=== PATIENT | male | born 1965 | race African-American/Black ===

== ENCOUNTER → 2023-12-08 08:15 | Outpatient (REF) | payer BC, SELFPAY | LOC: DHCBC MAIN 08:15 | PROVIDERS: ATTENDING PHYSICIAN Internal Medicine Cardiovascular Disease; FAMILY PHYSICIAN Nurse Practitioner Adult Health | DX: I10 Essential (primary) hypertension (principal) | CPT/HCPCS: 93306 ==

== ENCOUNTER 2024-09-08 03:40 | Inpatient (IN) | payer BC, SELFPAY ==
[2024-09-07 23:04] VITALS: BP 156/110
[2024-09-07 23:50] VITALS: BP 143/105
[2024-09-07 23:51] VITALS: BMI 32.0
[2024-09-08] VITALS (17 sets, daily range): BP systolic 106–159; BP diastolic 74–127; BMI 31.1
[2024-09-08 00:43] LABS: % Basophils 0.2 % (0-2); % Immature Granulocytes 1.2 % (0-0.5); % Lymphocytes 11.6 % (20.5-51.1); Absolute Immature Granulocytes 0.1 10^3/uL (0-0.05); Absolute Lymphocytes 0.6 10^3/uL (1.2-3.4); Absolute Monocytes 0.3 10^3/uL (0.1-0.6); Absolute Neutrophils 4.1 10^3/uL (1.4-6.5); Hematocrit 42.6 % (39.0-52.0); Mean Corp Hgb Conc. 32.9 g/dL (33.0-37.0); Mean Corpuscular Hgb 27.4 pg (27.0-31.0); Mean Corpuscular Volume 83.4 fL (80.0-94.0); Mean Platelet Volume 10.4 fL (7.4-10.4); Nucleated Red Blood Cells % 0 % (-); Platelet Count 206 10^3/uL (130-400); Red Blood Cell Count 5.11 10^6/uL (4.70-6.10); Red Cell Dist. Width 15.6 % (11.5-14.5)
--- NOTE | 2024-09-08 00:45 | ED.GENMED ---
History of Present Illness
General
Chief Complaint: Breathing Problem
Source: patient
Time Seen by Provider: 09/08/24 00:16
History of Present Illness
History of Present Illness:
58yoM with a history of hypertension presenting for evaluation of shortness of breath. He reports having a heaviness in his legs with associated shortness of breath that began about 3 weeks ago. Dyspnea is worse with exertion and at nighttime. He
was seen by his PCP at symptom onset and he was prescribed amoxicillin. Patient was told that his heart rate sounded irregular during exam and he was referred to cardiology. He has not yet seen cardiology. Symptoms initially subsided after taking
the antibiotics but then recurred. He was again seen at his PCP office today and was prescribed prednisone. He was speaking with a family friend who told him to go to the ED to make sure he did not have any fluid around his heart. He denies any
chest pain, palpitations, syncope, leg swelling. No prior history of atrial fibrillation.
Past History
Past History
ED Past Medical History: HTN
ED Past Surgical History: Orthopedic
Social History
Tobacco: Non-smoker
Alcohol: None
Drug: None
Personal:
Living: with family
Employment: Employed
Family History
Family History: Hypertension
Phy Exam
General Physical Exam
General Presentation: well appearing and no apparent distress
General age: appears stated age
General Skin: warm and dry
General Habitus: normal
General Mental: alert
ENT Exam
ENT Exam: normocephalic
Cardiovascular Exam
Cardiovascular Exam: no edema, irregularly irregular and tachycardia
Pulmonary Exam
Pulmonary Exam: lungs clear, no respiratory distress, no rales, no crackles, no rhonchi and no wheezing
Neurological Exam
Neurological Exam: alert
[place] Coma Scale
Eye Opening: Spontaneous
Verbal Response: Oriented
Motor Response: Obeys Commands
GCS Total Score: 15
Skin Exam
Skin Exam: normal color and warm/dry
Psychiatric Exam
Psychiatric Exam: normal mood/affect
Scores
Heart Failure Risk
Heart Failure Risk Score: Not Applicable
Course
Orders/Labs/Results
Orders:
Orders
09/07/24 23:07
Electrocardiogram (*1) Urgent
Reason for Study: Shortness of Breath
Chest [CR Chest - 2 Views ] Urgent
Comment:
Reason For Exam: SOB
09/08/24 00:15
CMP [Comprehensive Metabolic Panel] Urgent
Complete Blood Count/With Diff Urgent
Magnesium Urgent
TSH Urgent
Comment: ADD ON
Troponin I Urgent
09/08/24 00:44
Add On- LAB Urgent
Tests Added?: TSH, magnesium
09/08/24 00:47
Diltiazem HCl [Cardizem] 15 mg IV NOW STA
09/08/24 02:15
Diltiazem 125 mg/125 ml Nss [Cardizem] 125 mg in 125 ml IV PER PROTOCOL
Initial dose in mg/hr, then titrate:: 5
Titrate to keep:: Heart rate 80-100 bpm
Titrate by mg/hr:: 5 mg/hr
Frequency of titrations (minutes):: 15
Maximum dose in mg/hr:: 15
09/08/24 02:59
NT-proBNP Urgent
09/08/24 03:18
Admit/Transfer Patient As Directed
Co-Sign Provider:
Level of Care: Inpatient admission
Assign to:: IVU
Physician / Group: hospitalist
Diagnosis: afib rvr
Reason for Hospitalization: rvr
Expected length of stay greater than two midnights?: Yes
ELOS- Estimated Length of Stay in days: 2
I certify the patient meets the requirements for IP care: Yes
09/08/24 03:19
Code Status As Directed
Resuscitation Status: Full Code
09/08/24 04:56
Acetaminophen [Tylenol] 650 mg PO Q4HPRN PRN
Diltiazem 125 mg/125 ml Nss [Cardizem] 125 mg in 125 ml IV PER PROTOCOL
Currently infusing. Continue current dose and titrate:: Yes
Titrate to keep:: Heart rate 80-100 bpm
Titrate by mg/hr:: 5 mg/hr
Frequency of titrations (minutes):: 15
Maximum dose in mg/hr:: 15
Mag Hydrox/Al Hydrox/Simeth [Maalox] 30 ml PO Q4HPRN PRN
Ondansetron Injectable [Zofran] 4 mg IV Q6HPRN PRN
09/08/24 04:56
Echo 2D MMode Color/Doppler Routine
Reason for Study: new onset afib, rvr
Activity As Directed
Activity Level: With Assistance
INT (Intravenous Needle Therapy) As Directed
Comment: maintain peripheral IV access
Intake/ Output As Directed
Frequency: Per unit guidelines
Pneumatic Compression Sleeves As Directed
Type: Knee high
Vital Signs As Directed
Frequency: q4h
Weight As Directed
Frequency: Daily
DX Deep Vein Thrombosis Video Routine
09/08/24 05:32
Basic Metabolic Panel IN AM
Complete Blood Count/No Diff IN AM
09/08/24 Breakfast
NPO
Allow oral meds: Yes
Allow clear liquids: Sips of Clears
09/08/24 08:00
Lisinopril [Zestril] 20 mg PO DAILY
Predisone 4 mg PO DAILY
Abnormal Lab Results
09/08/24
00:15
MCHC 32.9 L g/dL
(33.0-37.0)
RDW 15.6 H %
(11.5-14.5)
Abs Immat Gran (auto) 0.1 H 10^3/uL
(0-0.05)
Absolute Lymphs (auto) 0.6 L 10^3/uL
(1.2-3.4)
Immature Gran % 1.2 H %
(0-0.5)
Neutrophils % 81.0 H %
(42.2-75.2)
Lymphocytes % 11.6 L %
(20.5-51.1)
BUN 23 H mg/dl
(9-20)
Glucose 117 H mg/dl
(70-99)
AST 75 H U/L
(17-59)
ALT 82 H U/L
(0-50)
09/08/24 00:15
09/08/24 00:15
Vital Signs
Initial and Last Documented VS:
Initial Vital Signs
Temp Pulse Resp BP Pulse Ox
98.1 F 66 20 156/110 98
09/07/24 23:04 09/07/24 23:04 09/07/24 23:04 09/07/24 23:04 09/07/24 23:04
Last Documented Vital Signs
Temp Pulse Resp BP Pulse Ox
98.7 F 105 18 144/100 99
09/08/24 07:42 09/08/24 07:41 09/08/24 07:42 09/08/24 07:41 09/08/24 07:42
MDM/Problems Addressed
Differential Diagnosis Includes:
58yoM here with SOB. Intermittent symptoms x 3 weeks. Was told by his PCP at symptom onset that his heart beat was irregular and was referred to cardiology. Has been treated with amoxicillin and prescribed prednisone earlier today. Denies
CP/palpitations/syncope. HR 120-130 during initial exam. Rate is irregularly irregular. EKG in triage confirms afib with RVR. Differential diagnosis includes but is not limited to: arrhythmia, CHF, electrolyte abnormality, thyroid dysfunction
Initial ED plan: Check cardiac labs, TSH, and CXR. IV Cardizem for rate control.
*EKG
Interpreted by ED Provider?: Yes
EKG Intrepretation Date: 09/07/24
Heart Rate: 130
Rate: tachycardiac
Rhythm: a-fib and PVC's
[place]: normal axis
QRS Pattern: normal QRS
Ischemia: no ischemia
*Critical Care Note
Total Time (30-74mins, 75-104mins- exclusive of procedures): Not Applicable
Update Note
Update Note:
Troponin WNL. Electrolytes and TSH normal. Patient persistently tachycardic after Cardizem bolus. Infusion started. Patient not a candidate for ED cardioversion given duration of symptoms and he is not anticoagulated. Will admit for further
management.
ED Attending Note
-
Portions of this chart may have been created with voice recognition software.� Occasional wrong word or��sound alike� substitutions may have occurred due to the inherent limitations of voice recognition software.
Discharge Plan
Departure
Patient Disposition: Admit
Date of Disposition: 09/08/24
Time of Disposition: 02:32
Presentation/result/management discussed w/ accepting MD/DO: Hospitalist
Discharge Problem:
Atrial fibrillation with rapid ventricular response
Interventions
Interventions:
*Risk Screen - Suicide Last Done: 09/07/24 23:04
*General Assessment Last Done: 09/08/24 00:11
*Neglect/Abuse Screening Last Done: 09/07/24 23:04
ED- Fall Risk Assessment Last Done: 09/08/24 04:00
*ED COVID-19 Vaccine History Last Done: 09/08/24 00:05
*Nursing Disposition Last Done: 09/08/24 04:30
ED- Cardiac Assessment Last Done: 09/07/24 23:51
ED- Pulmonary Assessment Last Done: 09/07/24 23:53
Discharge Date and Time
Discharge Date/Time: 09/08/24 04:30
[2024-09-08 00:50] LABS: ALT (SGPT) 82 U/L (0-50); AST (SGOT) 75 U/L (17-59); Albumin 3.9 g/dl (3.5-5.0); Alkaline Phosphatase 66 U/L (38-126); Blood Urea Nitrogen 23 mg/dl (9-20); Calcium 9.2 mg/dl (8.4-10.2); Carbon Dioxide 24 mmol/L (22-30); Chloride 103 mmol/L (98-107); Estimated Creatinine Clearance 108 ml/min; Glucose 117 mg/dl (70-99); Potassium 4.4 mmol/L (3.5-5.1); Sodium 135 mmol/L (135-145); Total Bilirubin 0.6 mg/dl (0.2-1.3); Total Protein 6.9 g/dl (6.3-8.2); eGFR > 60.00
[2024-09-08 00:56] LABS: Troponin I < 0.012 ng/ml
[2024-09-08] MEDS: CARDIZEM 15 MG IV (00:58)
[2024-09-08 02:50] LABS: TSH 1.04 uIU/ml (0.47-4.68)
[2024-09-08] MEDS: CARDIZEM 125 IV (03:26)
[2024-09-08 03:28] LABS: NT-proBNP 1940 pg/ml
--- NOTE | 2024-09-08 03:31 | HPS.HSE ---
Family Physician
-
Family Physician: Marian Lucio
Chief Complaint
-
Irregular rhythm and shortness of breath
History of Present Illness
This is a 58-year-old male with past medical history significant for hypertension who comes into the emergency department after being told to get evaluated for his irregular heartbeat and congestive heart failure.
Patient stated that about 3 weeks ago he was told that he had irregular beats by his physician and was referred to cardiology. In that time the patient reports that his had intermittent episodes of shortness of breath where he could not catch his
breath. He denies any coughing or wheezing. He does not smoke and has no history of asthma. Patient denies any lower extremity swelling. Denies any calf tenderness or pain. He does report that his legs feels elevated heavy. He denies having
any palpitations lightheadedness or dizziness. He is unaware of any irregular or rapid heart rate. However friends and family were in the healthcare told him to get evaluated in the ED with a chest x-ray for his shortness of breath. He actually
started taking azithromycin and prednisone yesterday for presumed bronchitis although he has no cough fevers or chills.
In the ED today he was afebrile blood pressure was 125/100 with a pulse rate of 130, he was satting 99% on room air. CBC was unremarkable electrolytes BUN/creatinine were also within normal limits. ECG shows atrial fibrillation with rapid
ventricular response at a rate of 130, troponin was negative. Chest x-ray has a small retrocardiac opacity. TSH within normal limits. BMP pending.
Medical History
Past Medical History
Past Medical History: Reports HTN
Past Surgical History: Reports None
Social History
Tobacco: Non-smoker
Alcohol: None
Drug: None
Personal:
Living: With Family
Employment: Employed
Family History
Family History: Not pertinent
Allergies / Home Medications
Allergies reflects when Allergies were last updated in [facility].
Home Medications with original date entered in [facility]
Allergy/Medication List:
Allergies
Allergy/AdvReac Type Severity Reaction Status Date / Time
No Known Allergies Allergy Verified 09/07/24 23:07
Home Medications
Predisone 4 mg PO DAILY 09/07/24
amlodipine 10 mg PO DAILY 09/07/24
azithromycin 250 mg PO DAILY 09/07/24
lisinopril 20 mg PO DAILY 09/07/24
Review of Systems
-
Constitutional: Reports No Symptoms
EENT: Reports No Symptoms
Respiratory: Reports Trouble Breathing
Cardiac: Reports No Symptoms
Abdomen/GI: Reports No Symptoms
: Reports No Symptoms
Musculoskeletal: Reports No Symptoms
Skin: Reports No Symptoms
Neurological: Reports No Symptoms
Endocrine: Reports No Symptoms
Hematologic/Lymphatic: Reports No Symptoms
Psych: Reports No Symptoms
Physical Exam
Vital Signs
Vital Signs
Temp Pulse Resp BP Pulse Ox
98.1 F 137 20 125/113 99
09/07/24 23:04 09/08/24 00:58 09/07/24 23:04 09/08/24 00:58 09/07/24 23:53
Physical Exam
General: Well Developed, Well Nourished, No Apparent Distress and Comfortable
HEENT: NormoCephalic, Anicteric, Moist mucous membranes and Atraumatic
Respiratory: Clear
Cardiac: S1/S2, Irregular Rhythm and Tachycardia
Breast: Deferred by me
GI: Soft, Non Tender and Normal Bowel Sounds
Rectal: Deferred by Provider
Genito-urinary: Deferred by me
Musculoskeletal: No Clubbing, No Cyanosis and No Edema
Skin: Warm
Neuro: AO x 3
Hematologic/Lymphatic: No Lymphadenopathy
Psych: Calm
Laboratory Results
-
09/08/24 00:15
09/08/24 00:15
Laboratory Results
Total Bilirubin 0.6 mg/dl (0.2-1.3) 09/08/24 00:15
AST 75 U/L (17-59) H 09/08/24 00:15
ALT 82 U/L (0-50) H 09/08/24 00:15
Alkaline Phosphatase 66 U/L (38-126) 09/08/24 00:15
Troponin I < 0.012 ng/ml 09/08/24 00:15
Data Reviewed
-
Diagnostic Radiology: Image Personally Visualized and interpreted
Medical Tests (Nuc Med, Echo, EKG etc): Image Personally Visualized and interpreted
Lab Data: Labs Reviewed by me
Old Records: Reviewed
Impression/Plan
-
IMPRESSION:
Patient with new onset atrial fibrillation with rapid ventricular response.
PLAN:
1. AFIB RVR -
- admit to ivu
- started on diltiazem in ED
- no cardioversion given duration
- CHADS2 = 1, possible aspirin or AC pending cardiac evaluation
- echo, bnp in am
- npo for now pending cardiac evalaution, likely rate control achievable on meds and no need for urgent cardioversion
- cardiology consultation
2. Bronchitis - No cough, fevers, leukocytosis. Xray possible infiltrate
- hold abx and steroids for now
- monitor respiratory symptoms
DVT PPX - heparin sq pending cardiology eval
Code status - full code
[2024-09-08 04:22] LABS: PT 14.5 Sec (11.4-14.6)
[2024-09-08 04:23] LABS: APTT 33.2 Sec (23.4-35.0)
[2024-09-08 06:06] LABS: Hematocrit 40.9 % (39.0-52.0); Hemoglobin 14.1 g/dL (13.0-18.0); Mean Corp Hgb Conc. 34.5 g/dL (33.0-37.0); Mean Corpuscular Hgb 27.8 pg (27.0-31.0); Mean Corpuscular Volume 80.5 fL (80.0-94.0); Platelet Count 209 10^3/uL (130-400); Red Blood Cell Count 5.08 10^6/uL (4.70-6.10); Red Cell Dist. Width 15.1 % (11.5-14.5); White Blood Cell Count 5.4 10^3/uL (4.8-10.8)
[2024-09-08 06:28] LABS: Blood Urea Nitrogen 20 mg/dl (9-20); Calcium 9.2 mg/dl (8.4-10.2); Carbon Dioxide 23 mmol/L (22-30); Chloride 103 mmol/L (98-107); Estimated Creatinine Clearance 118 ml/min; Glucose 105 mg/dl (70-99); Potassium 4.6 mmol/L (3.5-5.1); Sodium 136 mmol/L (135-145); eGFR > 60.00
[2024-09-08] MEDS: ZESTRIL 20 MG PO (07:41)
--- NOTE | 2024-09-08 07:41 | PTCARENOTE ---
Pt admitted to room 2243. AFib on monitor. Cardizem gtt ay 5ml/hr. Pt denies CP or SOB at that time. Pt ambbulates independently. Pt Oriented to room. call campuzano in reach. NPO per order
[2024-09-08] MEDS: HEPARIN 5000 UNITS SC (07:47)
--- NOTE | 2024-09-08 09:19 | CON.CAR ---
Consultation
Consultation Request
Date/Time Consultation Requested: 09/08/2024
Date/Time Consultation Performed: 09/08/2024
Reason for Consultation: New onset atrial fibrillation
Medical History
-
Chief Complaint: Palpitations and shortness of breath
History of Present Illness:
58-year-old male with past medical history significant for hypertension who comes into the emergency department after being told to get evaluated for his irregular heartbeat and congestive heart failure.
Patient stated that about 3 weeks ago he was told that he had irregular beats by his physician and was referred to cardiology. In that time the patient reports that his had intermittent episodes of shortness of breath where he could not catch his
breath. He denies any coughing or wheezing. He does not smoke and has no history of asthma. Patient denies any lower extremity swelling. Denies any calf tenderness or pain. He does report that his legs feels elevated heavy. He denies having
any palpitations lightheadedness or dizziness. He is unaware of any irregular or rapid heart rate. However friends and family were in the healthcare told him to get evaluated in the ED with a chest x-ray for his shortness of breath. He actually
started taking azithromycin and prednisone yesterday for presumed bronchitis although he has no cough fevers or chills.
In the ED today he was afebrile blood pressure was 125/100 with a pulse rate of 130, he was satting 99% on room air. CBC was unremarkable electrolytes BUN/creatinine were also within normal limits. ECG shows atrial fibrillation with rapid
ventricular response at a rate of 130, troponin was negative. Chest x-ray has a small retrocardiac opacity. TSH within normal limits. BMP pending.
Past Medical History
Past Medical History: Arrhythmias (Sustained atrial fibrillation diagnosed over a month ago.) and HTN
Social History
Tobacco: Non-Smoker
Alcohol: None
Drug: None
Personal:
Living: With Family
Family History
Family History: Reviewed & Not Pertinent
Allergies / Home Medications
Allergy/AdvReac Type Severity Reaction Status Date / Time
No Known Allergies Allergy Verified 09/07/24 23:07
�Medication �Instructions �Recorded �Confirmed �Type
Predisone 4 mg PO DAILY 09/07/24 09/08/24 History
amlodipine 10 mg PO DAILY 09/07/24 09/08/24 History
azithromycin 250 mg PO DAILY 09/07/24 09/08/24 History
lisinopril 20 mg PO DAILY 09/07/24 09/07/24 History
Review of Systems
-
All other systems: Negative unless noted
Physical Exam
Vital Signs
Temp Pulse Resp BP Pulse Ox
98.7 F 105 18 144/100 99
09/08/24 07:42 09/08/24 07:41 09/08/24 07:42 09/08/24 07:41 09/08/24 07:42
Lab Results
09/08/24 05:32
09/08/24 05:32
Troponin I < 0.012 ng/ml 09/08/24 00:15
Ekn-O-Cgfprwkfiwt Pept 1940 pg/ml 09/08/24 02:59
Physical Exam
General: Well Developed, Well Nourished and No Apparent Distress
HEENT: Normocephalic and Anicteric
Respiratory: Clear, Wheezes and Non Labored Respirations
Cardiac: S1/S2, Irregular Rhythm and Murmur; Negative JVD
GI: Soft, Non Distended and Normal Bowel Sounds
Musculoskeletal: No Clubbing, No Cyanosis and No Edema
Skin: Warm and Dry
Neuro: Awake, Alert, Oriented, AO x 3 and No Motor Deficits
Impression / Plan
-
58-year-old gentleman with history of essential hypertension presented with shortness of breath and palpitations and is noted to have atrial fibrillation with rapid ventricular response.
Atrial fibrillation
-Persistent atrial fibrillation initially diagnosed at the start of August 2024
-The onset of atrial fibrillation is not clear. Possible present over a month.
-[id number] score is 1 for hypertension
-Patient was previously not anticoagulated due to low [id number] score
-Now with the plan for rhythm control, we will start patient on Eliquis 5 mg twice a day
-Discussed including and versus rhythm control -patient is interested in rhythm control with an ablation.
-We will schedule for ablation consult as an outpatient.
-For now we will continue rate control�switch IV diltiazem drip to p.o.
-Requiring high dose of diltiazem. Will start 360 mg of diltiazem once a day
-We will add metoprolol 25 mg every 6 hours for additional rate control
-Continue lisinopril
-Echo in AM.
Hypertension
-Continue lisinopril
-Will discontinue amlodipine and switch to diltiazem and metoprolol.
Data Reviewed
-
EKG: Tracing Personally Visualized and interpreted and Report Reviewed by me
Radiology: Image Personally Visualized and interpreted
Medical Tests (Nuc Med, Echo etc): Image Personally Visualized and interpreted
Labs: Labs Reviewed by me
Old Records: Reviewed
--- NOTE | 2024-09-08 11:23 | W.PN.UPDATE ---
Update Note
Progress Note Update
Non-billable addendum (H&P submitted 330 AM)
Patient admitted with new onset Rapid Afib
started on IV Cardizem with plans to transition to PO agents per EP Cardiology
Currently comfortable, no complaints
Assessment:
Parox Afib with RVR
- continue Cardizem drip - requires intensive monitoring of BP/HRs
- planned for transition to PO Cardizem and PO Lopressor
- start Eliquis
- obtain Echo
- EP/Cards following; possible Ablation outpatient
Suspected mild acute CHF - unknown type
- IV Lasix x 1
- reassess in AM
reported R basilar infiltrate on CXR
- no SOB or cough, no hypoxia
- check AM procal
- watch off Abx
DVT ppx: Eliquis
Code: Full
[2024-09-08] MEDS: LOPRESSOR 25 MG PO ×3 (12:16→22:49)
[2024-09-08] MEDS: LASIX 40 MG IV (12:16)
[2024-09-08] MEDS: CARDIZEM CD 360 MG PO (12:16)
[2024-09-08] MEDS: ELIQUIS 5 MG PO ×2 (12:16→20:27)
--- NOTE | 2024-09-08 14:40 | PTCARENOTE ---
Pt remains Afib. HR 90-100s. Assessment completed as documented. VSS. No complaints at this time. Call justen w/in reach.
[2024-09-09] VITALS (9 sets, daily range): BP systolic 109–145; BP diastolic 81–117; BMI 30.4
[2024-09-09] MEDS: ANESTHETIC LOZENGE 1 LOZENGE PO (01:53)
[2024-09-09 04:12] LABS: Hematocrit 41.8 % (39.0-52.0); Hemoglobin 14.2 g/dL (13.0-18.0); Mean Corpuscular Hgb 27.5 pg (27.0-31.0); Mean Platelet Volume 10.2 fL (7.4-10.4); Platelet Count 198 10^3/uL (130-400); Red Blood Cell Count 5.16 10^6/uL (4.70-6.10); Red Cell Dist. Width 15.1 % (11.5-14.5); White Blood Cell Count 7.4 10^3/uL (4.8-10.8)
[2024-09-09 04:34] LABS: ALT (SGPT) 91 U/L (0-50); AST (SGOT) 67 U/L (17-59); Alkaline Phosphatase 52 U/L (38-126); Blood Urea Nitrogen 16 mg/dl (9-20); Calcium 9.1 mg/dl (8.4-10.2); Carbon Dioxide 27 mmol/L (22-30); Chloride 101 mmol/L (98-107); Estimated Creatinine Clearance 96 ml/min; Glucose 105 mg/dl (70-99); Potassium 3.9 mmol/L (3.5-5.1); Sodium 137 mmol/L (135-145); Total Bilirubin 0.8 mg/dl (0.2-1.3); Total Protein 7.1 g/dl (6.3-8.2); eGFR > 60.00
[2024-09-09 04:43] LABS: Procalcitonin < 0.05 ng/ml (0.0-0.25)
[2024-09-09] MEDS: LOPRESSOR 25 MG PO (05:05)
--- NOTE | 2024-09-09 07:58 | W.PN.CD ---
Today's Communication / Plan
-
- ECHO today
- Lasix x1 today and can use lasix 40 mg PO prn edema.
- Dig x1 today
- Discharge home on Dilt and Metoprolol with Eliquis. Stop Amlodipine.
- Likely discharge with follow up in office in 1-2 weeks for ablation consult.
Impression / Plan
-
58-year-old gentleman with history of essential hypertension presented with shortness of breath and palpitations and is noted to have atrial fibrillation with rapid ventricular response.
Atrial fibrillation
-Persistent atrial fibrillation initially diagnosed at the start of August 2024
-The onset of atrial fibrillation is not clear. Possible present over a month.
-[id number] score is 1 for hypertension
-Patient was previously not anticoagulated due to low [id number] score
-Now with the plan for rhythm control, we will start patient on Eliquis 5 mg twice a day
-Discussed including and versus rhythm control -patient is interested in rhythm control with an ablation.
-We will schedule for ablation consult as an outpatient.
-For now we will continue rate control�switch IV diltiazem drip to p.o.
-Rate control is sub optimal - will continue Dill 360 mg QD, Switch Metoprolol to 100 mg QAM.
-Will give digoxin Po x1 today while dilt and Metoprolol reaches stable levels.
-Continue lisinopril
-Echo today with better rate control
Hypertension
-Continue lisinopril
-Will discontinue amlodipine and switch to diltiazem and metoprolol.
Physical Exam
Vital Signs/Labs
Vital Signs
Temp Pulse Resp BP Pulse Ox
98.0 F 114 16 131/102 99
09/09/24 03:52 09/09/24 05:05 09/09/24 03:52 09/09/24 05:05 09/09/24 03:53
09/08/24 09/09/24 09/10/24
06:59 06:59 06:59
Actual Weight 109.9 kg 107.5 kg
09/09/24 04:00
09/09/24 04:00
PT 14.5 Sec (11.4-14.6) 09/08/24 04:04
PT Cancelled 09/08/24 04:04
INR 1.10 09/08/24 04:04
INR Cancelled 09/08/24 04:04
APTT 33.2 Sec (23.4-35.0) 09/08/24 04:04
APTT Cancelled 09/08/24 04:04
Magnesium 2.0 mg/dl (1.6-2.3) 09/08/24 00:15
TSH 1.04 uIU/ml (0.47-4.68) 09/08/24 00:15
09/08/24
02:59
Okl-R-Bvencgtysmi Pept 194
LAB Results
09/08/24
00:15
Troponin I < 0.012
Physical Exam
Constitutional: No acute distress and Comfortable
EENT: Anicteric and Moist mucous membranes
Cardiovascular: Rhythm/rate is irregular, JVD present and Systolic murmur present
Respiratory: Respiratory effort normal, Lungs clear to auscul., Crackles Absent and Rhonchi Absent
GI: Soft, Non tender and Normal bowel sounds
Neuro/Psych: Alert, Oriented and AO x 3
Data Reviewed
-
Date of Service: September 09, 2024
Medical Decision Making: Reviewed Test Results, Test Interpretation and Review of Case with other Provider
EKG: Tracing Personally Visualized and interpreted
Echo: Report Reviewed by me
Labs: Labs Reviewed by me
Old Records: Reviewed
--- NOTE | 2024-09-09 08:00 | PTCARENOTE ---
Assumed care of pt from prev nsg shift; Pt AAOx3. Pt w/BP stable at 143/98. HR is in the 90's-100's at rest w/pt's HR 120's-130's w/activity. Pt remains rapid A-Fib w/RVR. This RN discussed plan of care w/pt & pt verbalized understanding. Pt w/call
campuzano within reach & plan of care ongoing.
--- NOTE | 2024-09-09 08:00 | PTCARENOTE ---
Assumed care of pt from prev nsg shift, AAOx3 w/no c/o CP or SOB. Pt's BP stable at 144/72. Pt's HR is low 40's-50's w/freq pauses. Pt is Afib on telemetry monitoring. MD's are aware of pauses, pt for PPM placement this AM. Pt NPO since midnight.
Pt's IV Heparin drip stopped per MD order. This RN discussed plan of care w/pt. Pt verbalized his understanding. Pt w/call campuzano within reach & no addtl needs at this time.
[2024-09-09] MEDS: KCL 40 MEQ PO (09:14)
[2024-09-09] MEDS: ELIQUIS 5 MG PO ×2 (09:14→20:33)
[2024-09-09] MEDS: CARDIZEM CD 360 MG PO (09:14)
[2024-09-09] MEDS: LANOXIN 250 MCG PO (09:15)
[2024-09-09] MEDS: TOPROL XL 100 MG PO (09:15)
[2024-09-09] MEDS: LASIX 60 MG IV (09:15)
[2024-09-09] MEDS: FLUSH (NSS) 2 FLUSH IV (09:15)
[2024-09-09] MEDS: ZESTRIL 20 MG PO (09:15)
--- NOTE | 2024-09-09 10:23 | W.PN.HOSP.TC ---
Today's Communication/Plan
-
continue Cardizem/Toprol XL/Eliquis
added Digoxin per Cards
IV Lasix x 1 given today
Echo
Assessment / Plan
Assessment / Plan
Assessment:
Parox Afib with RVR
- continue PO Cardizem, PO Lopressor
- planned for transition to PO Cardizem and PO Toprol XL
- Digoxin added 09/09 for ongoing RVR
- continue Eliquis
- obtain Echo today
- EP/Cards following; possible Ablation outpatient
Suspected mild acute CHF - unknown type
- IV Lasix x 2 doses given; assess daily
reported R basilar infiltrate on CXR
- no SOB or cough, no hypoxia
- procal neg
- watch off Abx
DVT ppx: Eliquis
Code: Full
Anticipated Discharge: 24 - 48 hours
Subjective/Interval History
-
Date of Service: September 09, 2024
remains in Rapid Afib
no complaints
started on Dig per Cardiology
Objective Data
-
Labs:
Laboratory Results
09/09/24
04:00
WBC 7.4
Hgb 14.2
Hct 41.8
Plt Count 198
Sodium 137
Potassium 3.9
Chloride 101
Carbon Dioxide 27
BUN 16
Creatinine 1.1
Glucose 105 H
Calcium 9.1
Total Bilirubin 0.8
AST 67 H
ALT 91 H
Alkaline Phosphatase 52
Vital Signs:
Vital Signs
Temp Pulse Resp BP Pulse Ox
97.3 F 115 20 145/113 98
09/09/24 07:59 09/09/24 09:15 09/09/24 07:59 09/09/24 08:03 09/09/24 08:02
I&O
09/08/24 09/09/24 09/10/24
06:59 06:59 06:59
Intake Total 800 / 800
Balance 800 / 800
Physical Exam
-
General: No Apparent Distress
HEENT: Normocephalic and Atraumatic
Cardiac: Irregular Rhythm and Tachycardic
GI: Soft and Nontender
Genito-urinary: No Costovertebral Tender
Musculoskeletal: No Edema
Skin: Ulcers
Neuro: AO x 3
Hematologic / Lymphatic: No Lymphadenopathy
Psych: Calm
Data Reviewed
-
Total Time Spent with Patient (in minutes): 47
Labs: Labs Reviewed by me
--- NOTE | 2024-09-09 11:22 | CM ---
Chart reviewed. Patient is independent of ADLS, lives with his fiance in a 1st floor apartment, 0 CESAR, 0 DME. Plan is for the patient to return home. CM to follow
--- NOTE | 2024-09-09 13:22 | CM ---
Pricing on [employer] is $39.72 for a 30 day supply. The patient has commercial insurance and qualifies for the $10 co pay card. I placed it in the patient's red discharge folder
--- NOTE | 2024-09-09 16:50 | PTCARENOTE ---
Report given to Víctor in the medical lab technician. Pt taken in bed to biological lab technician.
[2024-09-10 02:55] VITALS: BP 131/88
[2024-09-10 02:59] VITALS: BMI 30.1
[2024-09-10 03:36] LABS: Hematocrit 41.4 % (39.0-52.0); Mean Corp Hgb Conc. 33.8 g/dL (33.0-37.0); Mean Corpuscular Hgb 27.3 pg (27.0-31.0); Mean Corpuscular Volume 80.9 fL (80.0-94.0); Mean Platelet Volume 10.2 fL (7.4-10.4); Platelet Count 195 10^3/uL (130-400); Red Blood Cell Count 5.12 10^6/uL (4.70-6.10); Red Cell Dist. Width 15.5 % (11.5-14.5); White Blood Cell Count 6.4 10^3/uL (4.8-10.8)
[2024-09-10 04:00] LABS: Blood Urea Nitrogen 17 mg/dl (9-20); Calcium 9.2 mg/dl (8.4-10.2); Carbon Dioxide 27 mmol/L (22-30); Chloride 103 mmol/L (98-107); Estimated Creatinine Clearance 94 ml/min; Glucose 105 mg/dl (70-99); Potassium 4.4 mmol/L (3.5-5.1); Sodium 137 mmol/L (135-145); eGFR > 60.00
--- NOTE | 2024-09-10 05:29 | PTCARENOTE ---
Assumed care of pt at change of shift. Afib on tele with PVCs and occasional pausing. Longest pause 3 seconds, pt asymptomatic. HR 80s-90s at rest and low 100s with activity. Denies CP and SOB. Ambulating independently in room without
difficulty. Education provided on new medications and plan of care discussed. Pt verbalizes understanding. Call campuzano within reach.
--- NOTE | 2024-09-10 06:42 | W.PN.HOSP.TC ---
Addendum entered and electronically signed by Rhett Pavon MD 09/10/24 14:52:
Addendum
Saw the patient again. Patient walked around the unit with heart rate averaging 110. He was asymptomatic. He felt fine and wanted to go home. Discussed with talent advisor and recommended outpatient follow-up for ablation
Total discharge time spent to see the patient, examine the patient, review data and lab results, discuss the discharge plan with patient, talent advisor on-call, nursing staff around 65 minutes
Original Note:
Today's Communication/Plan
-
Keep NPO until cardiology evaluation, uncontrolled A fib
New onset heart failure
Assessment / Plan
Assessment / Plan
Physical Exam
-
General: No Apparent Distress
HEENT: Normocephalic and Atraumatic
Cardiac: Irregular Rhythm and Tachycardic
GI: Soft and Nontender
Genito-urinary: No Costovertebral Tender
Musculoskeletal: No Edema
Skin: Ulcers
Neuro: AO x 3, he followed commands.
Psych: Calm
Assessment:
#Parox Afib with RVR
Uncontrolled. Keep NPO for cardiology evaluation
PO Cardizem and PO Toprol XL
- continue Eliquis
echo showed LVEF at 45% ( reduced from November 2023 echo)
- EP/Cards following; possible Ablation outpatient
# Acute HFrEF , new onset
Echo showed LVEF 45 to 50%, biatrial enlargement, mild to moderate MR, moderate aortic regurgitation, moderate tricuspid regurgitation. Dilated aortic root 4.5 cm, ascending aorta 4.0 cm.
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
s/p Lasix
reported R basilar infiltrate on CXR
- no SOB or cough, no hypoxia
- procal neg
- watch off Abx
# Mild transaminitis
No abd pain
DVT ppx: Eliquis
Code: Full
Total time spent to see the patient, examine the patient, review data and lab results, discuss the treatment plan with patient, nursing staff around 55 minutes
Anticipated Discharge: Within 24 hours
Subjective/Interval History
-
Date of Service: September 10, 2024
No chest pain
Objective Data
-
Labs:
Laboratory Results
09/10/24
03:19
WBC 6.4
Hgb 14.0
Hct 41.4
Plt Count 195
Sodium 137
Potassium 4.4
Chloride 103
Carbon Dioxide 27
BUN 17
Creatinine 1.0
Glucose 105 H
Calcium 9.2
Vital Signs:
Vital Signs
Temp Pulse Resp BP Pulse Ox
97.7 F 105 18 131/88 99
09/10/24 02:54 09/10/24 05:00 09/10/24 02:54 09/10/24 02:55 09/10/24 02:55
I&O
09/08/24 09/09/24 09/10/24
06:59 06:59 06:59
Intake Total 800 / 800 960 / 960
Balance 800 / 800 960 / 960
[2024-09-10 07:04] VITALS: BP 132/99
[2024-09-10] MEDS: ELIQUIS 5 MG PO (08:40)
[2024-09-10] MEDS: CARDIZEM CD 360 MG PO (08:40)
[2024-09-10] MEDS: ZESTRIL 20 MG PO (08:40)
[2024-09-10] MEDS: TOPROL XL 100 MG PO (08:40)
--- NOTE | 2024-09-10 09:05 | W.PN.CD ---
Today's Communication / Plan
-
Cont meds
Monitor HR
Possible DC later today
Impression / Plan
-
58-year-old gentleman with history of essential hypertension presented with shortness of breath and palpitations and is noted to have atrial fibrillation with rapid ventricular response.
Atrial fibrillation
-Persistent atrial fibrillation initially diagnosed at the start of August 2024
-The onset of atrial fibrillation is not clear. Possible present over a month.
-[id number] score is 1 for hypertension
-Patient was previously not anticoagulated due to low [id number] score
-Now with the plan for rhythm control, we will start patient on Eliquis 5 mg twice a day
-Discussed including and versus rhythm control -patient is interested in rhythm control with an ablation.
-We will schedule for ablation consult as an outpatient.
-For now we will continue rate control�switch IV diltiazem drip to p.o.
-Rate control is sub optimal - will continue Dill 360 mg QD, Switch Metoprolol to 100 mg QAM.
-Cont dilt and metop can increase to 100 bid if necessary
-Continue lisinopril
-Echo showed EF 45-50% likely tachycardia induced
Hypertension
-Continue lisinopril
-Will discontinue amlodipine and switch to diltiazem and metoprolol.
Subjective: feels well would like to be d/c if able
CONCLUSIONS
Normal left ventricular size with mildly reduced systolic function and global
hypokinesis. LVEF 45-50%.
Normal right ventricular size with borderline normal systolic function.
Biatrial enlargement.
Mild to moderate mitral regurgitation.
Moderate aortic regurgitation.
Moderate tricuspid regurgitation with mildly elevated right heart pressures
(PASP 40 mmHg).
Dilated aortic root (4.5 cm) and ascending aorta (4.0 cm).
Compared to prior echocardiogram on 12/08/2023, left ventricular systolic
function has decreased from normal to mildly reduced in the setting of
arrhythmia. There is now mild to moderate mitral regurgitation and moderate
tricuspid regurgitation. Degree of aortic regurgitation is stable. Aortic
root has increased in size from 4.3 cm to 4.5 cm. Ascending aorta is stable in
size.
Physical Exam
Vital Signs/Labs
Vital Signs
Temp Pulse Resp BP Pulse Ox
97.9 F 110 18 132/99 96
09/10/24 07:06 09/10/24 08:00 09/10/24 07:06 09/10/24 07:04 09/10/24 07:06
09/09/24 09/10/24 09/11/24
06:59 06:59 06:59
Actual Weight 236 lb 15.951 oz 234 lb 5.622 oz
09/10/24 03:19
09/10/24 03:19
PT 14.5 Sec (11.4-14.6) 09/08/24 04:04
PT Cancelled 09/08/24 04:04
INR 1.10 09/08/24 04:04
INR Cancelled 09/08/24 04:04
APTT 33.2 Sec (23.4-35.0) 09/08/24 04:04
APTT Cancelled 09/08/24 04:04
Magnesium 2.0 mg/dl (1.6-2.3) 09/08/24 00:15
TSH 1.04 uIU/ml (0.47-4.68) 09/08/24 00:15
09/08/24
02:59
Joy-K-Iooywzgyqak Pept 1940
LAB Results
09/08/24
00:15
Troponin I < 0.012
Physical Exam
Constitutional: No acute distress
EENT: Anicteric
Cardiovascular: Rhythm/rate is irregular
Respiratory: Respiratory effort normal and Lungs clear to auscul.
GI: Soft
Neuro/Psych: AO x 3
Data Reviewed
-
Date of Service: September 10, 2024
EKG: Tracing Personally Visualized and interpreted (af)
Echo: Report Reviewed by me
Labs: Labs Reviewed by me
--- NOTE | 2024-09-10 10:53 | PTCARENOTE ---
Assumed care of pt from prev nsg shift; Pt AAOx3. Pt w/BP stable at 132/99. HR is in the 90's-100's at rest w/pt's HR 110's-120's w/activity. Pt remains rapid A-Fib. This RN discussed plan of care w/pt & pt verbalized understanding. Pt w/call campuzano
within reach & plan of care ongoing.
[2024-09-10 11:36] VITALS: BP 122/96
--- NOTE | 2024-09-10 12:28 | CM ---
CM following for DC planning needs.
Have reviewed initial assessment.
Pt. resides w/ fiance in a 1st flr apartment.
Functionally, patient is indep. w/ ADLs, mobility without the use of any assisted device.
Antic. DC plan is for home, no needs.
Will remain available for any needs that may arise.
--- NOTE | 2024-09-10 14:47 | W.DCSUMMARY ---
Discharge Summary
Discharge Data
Date of Admission: 09/08/24
Date of Discharge: 09/10/24
-
Pending Results: No
Hospital Course
58 years old male presented with shortness of breath and palpitations. Patient was diagnosed with rapid atrial fibrillation with uncontrolled ventricular response. Patient was evaluated by beef splitter. Repeat echocardiogram showed left
ventricular ejection fraction 45 to 50% which was reduced from previous reading in November 2023. Echocardiogram showed biatrial enlargement, mild to moderate mitral regurgitation, moderate aortic regurgitation, moderate tricuspid regurgitation with
dilated aortic root at 4.5 cm. Diagnosis of tachycardia induced cardiomyopathy. Press Set Up Person adjusted medication recommended outpatient follow-up for possible ablation. Patient was maintained on rate control medication with Eliquis. He remained
hemodynamically stable. Patient was able to ambulate without feeling short of breath or palpitation. Patient was discharged home in a stable condition.
Discharge Plan
-
Patient Disposition: Home (Routine Discharge)
Discharge Diagnosis/Procedures: Atrial Fibrillation with rapid ventricular response
Condition: Good
Diet: Low Cholesterol
Activity: As tolerated
Bathing Restrictions: None
Referrals:
Amarilis Khan MD [Active] - (call to make appointment to discuss ablation)
Marian Lucio CRNP [Family Provider] -
Prescriptions:
New
diltiazem HCl 180 mg Capsule,Extended Release 24hr
360 mg PO DAILY Qty: 30 0RF
Eliquis 5 mg Tablet
5 mg PO BID Qty: 60 0RF
lisinopril 20 mg Tablet
20 mg PO DAILY Qty: 30 0RF
metoprolol succinate 100 mg Tablet Extended Release 24 Hr
100 mg PO DAILY Qty: 30 0RF
Discontinued
Predisone
4 mg PO DAILY
Rx Instructions:
6 tabs first day,5 tabs second day,4 tabs third day till gone
amlodipine
10 mg PO DAILY
azithromycin
250 mg PO DAILY
Rx Instructions:
daily x 5 days
lisinopril
20 mg PO DAILY
Discharge Orders:
Discharge Patient (As Directed); Ordered 09/10/24
Ordered By: Rhett Pavon
Care Plan Goals
Care Plan Goals:
Problem: Readiness for enhanced knowledge related to diagnosis and treatment plan
Goal: Understand your diagnosis and treatment plan needs, including medications if applicable.
Instructions: Know your diagnosis, underlying causes and treatment plan options, including medications if applicable. Consult with your health care team to learn about your diagnosis and treatment plan, including medications if applicable.
Discharge Date and Time
Print Language: OCCITAN
[2024-09-10 15:20] VITALS: BP 121/91
--- NOTE | 2024-09-10 15:59 | PN.CDI ---
Addendum entered and electronically signed by Rhett Pavon MD 09/10/24 16:44:
Persistent atrial fibrillation
Original Note:
CDI
- -
CDI:
Physician Documentation Request
Admit Date: 09/08/24 03:40
Dear Doctor Librado,
Hospitalist progress note state 'acute HFrEF, new onset... Heart failure due to tachycardia'
Patient found to have atrial fibrillation.
Hospitalist states 'parox Afib with RVR'
cardiology progress note state 'Persistent atrial fibrillation initially diagnosed at the start of August 2024. The onset of atrial fibrillation is not clear. Possible present over a month'
In an attempt to clarify potentially conflicting documentation, please clarify the type of atrial fib.
Paroxysmal atrial fibrillation - terminates spontaneously or with intervention within 7 days of onset
Persistent atrial fibrillation - episodes of continuous AF that last more than 7 days and do not self-terminate
Other - please specify
Use of terms such as suspected, likely, concern for, or probable (associated with a specific diagnosis that is being evaluated, monitored, or treated as if it exists) are acceptable and can be coded in the inpatient setting, when documented at the
time of discharge.
Thank you,
Kelly Patton RN, BSN
CDI Specialist
tiger text
Please use your independent medical judgment in providing your response.
[2024-09-10] MEDS: AFLURIA (36 mos+) 2024-2025 FORMULA 0.5 ML IM (16:08)
--- NOTE | 2024-09-10 17:33 | PTCARENOTE ---
Pt's IV line & telemetry D/C'd. D/C instructions discussed w/pt. Pt transported out via wheelchair. Pt's daughter driving him home.
== END 2024-09-10 17:20 | disposition home or self-care (01) | DRG 308 ==
LOC: IVU 03:40
PROVIDERS: Internal Medicine; Physician Assistant; ADMITTING PHYSICIAN Internal Medicine; ATTENDING PHYSICIAN Internal Medicine; EMERGENCY PHYSICIAN Emergency Medicine; FAMILY PHYSICIAN Nurse Practitioner Adult Health; OTHER PHYSICIAN Internal Medicine Cardiovascular Disease
PROC: 3E02340 Introduction of Influenza Vaccine into Muscle, Percutaneous Approach (ICD-10-PCS; 2024-09-10)
DX: I48.19 Other persistent atrial fibrillation (principal); I50.21 Acute systolic (congestive) heart failure; I08.3 Combined rheumatic disorders of mitral, aortic and tricuspid valves; I10 Essential (primary) hypertension; I42.8 Other cardiomyopathies; J40 Bronchitis, not specified as acute or chronic; Z23 Encounter for immunization; Z79.899 Other long term (current) drug therapy
CPT/HCPCS: 71046; 80048; 80053; 83735; 83880; 84145; 84443; 84484; 85025; 85027; 85610; 85730; 90686; 93005; 93306; 96374; 99285; G0008

== ENCOUNTER 2024-10-19 06:00 | Day surgery (SDC) | payer BC, SELFPAY ==
[2024-10-15 13:15] VITALS: BMI 32.8
[2024-10-15 13:41] LABS: % Basophils 0.2 % (0-2); % Eosinophils 0.5 % (0-6); % Immature Granulocytes 0.2 % (0-0.5); % Neutrophils 62.1 % (42.2-75.2); Absolute Lymphocytes 1.7 10^3/uL (1.2-3.4); Absolute Monocytes 0.5 10^3/uL (0.1-0.6); Absolute Neutrophils 3.7 10^3/uL (1.4-6.5); Hematocrit 45.7 % (39.0-52.0); Hemoglobin 15.2 g/dL (13.0-18.0); Mean Corp Hgb Conc. 33.3 g/dL (33.0-37.0); Mean Corpuscular Hgb 27.6 pg (27.0-31.0); Mean Corpuscular Volume 82.9 fL (80.0-94.0); Mean Platelet Volume 10.7 fL (7.4-10.4); Nucleated Red Blood Cells % 0 % (-); Platelet Count 180 10^3/uL (130-400); Red Blood Cell Count 5.51 10^6/uL (4.70-6.10); Red Cell Dist. Width 15.2 % (11.5-14.5); White Blood Cell Count 5.9 10^3/uL (4.8-10.8)
[2024-10-15 13:56] LABS: ALT (SGPT) 90 U/L (0-50); AST (SGOT) 54 U/L (17-59); Albumin 4.7 g/dl (3.5-5.0); Alkaline Phosphatase 61 U/L (38-126); Blood Urea Nitrogen 20 mg/dl (9-20); Calcium 9.5 mg/dl (8.4-10.2); Carbon Dioxide 29 mmol/L (22-30); Chloride 101 mmol/L (98-107); Estimated Creatinine Clearance 91 ml/min; Glucose 98 mg/dl (70-99); Potassium 4.1 mmol/L (3.5-5.1); Sodium 137 mmol/L (135-145); Total Bilirubin 1.2 mg/dl (0.2-1.3); Total Protein 7.7 g/dl (6.3-8.2); eGFR > 60.00
[2024-10-19] VITALS (14 sets, daily range): BP systolic 95–173; BP diastolic 71–150
[2024-10-19 08:39] LABS: ACT-LR - POC 292 Seconds (116-155)
[2024-10-19 09:01] LABS: ACT-LR - POC 322 Seconds (116-155)
[2024-10-19 09:17] LABS: ACT-LR - POC 379 Seconds (116-155)
[2024-10-19] MEDS: ZOFRAN 4 MG IV (10:28)
[2024-10-19] MEDS: TYLENOL 650 MG PO (10:57)
[2024-10-19] MEDS: TORADOL 15 MG IV (11:01)
--- NOTE | 2024-10-19 12:23 | ITS.CL.ABL ---
Final Assembly Worker - Ablation
Ablation
Procedure Report:
AFIB / A flutter ablation:
Mr. gAustin is a very pleasant 59 yr old gentleman with medical history significant for symptomatic persistent atrial fibrillation on Diltiazem, metoprolol and Eliquis is here in the EP lab for atrial fibrillation ablation
Date of Procedure:
10/19/2024
Indications:
Symptomatic persistent atrial fibrillation
Pre-Operative Diagnosis:
Persistent atrial fibrillation
Post-Operative Diagnosis:
Persistent atrial fibrillation
Procedure Performed:
Atrial fibrillation ablation with wide area circumferential ablation (WACA) approach for pulmonary vein isolation
Performing Physician:
Amarilis Khan MD
Assistants:
EP staff
Anesthesia:
See anesthesia records
Detailed Description of the Procedure:
Written informed consent was obtained from the patient after a full explanation of the risks and benefits of the procedure including the risks of sedation and anesthesia.
The patient was brought to the electrophysiology laboratory in stable condition in fasting state. Continuous electrocardiographic and hemodynamic monitoring was initiated.
The initial rhythm was atrial fibrillation.
The procedure site was meticulously prepared with surgical scrub and allowed to dry with no pooling. Sterile draping was applied to cover the procedure site. The image intensifier was draped with sterile bag and positioned over the patient. After
infusion of local anesthetic, vascular access was obtained under ultrasound guidance and sheaths were placed over guide wire as detailed below.
The images of the ultrasound of the femoral vessels were stored in patient chart.
Sheath and Catheter Placement:
In the right femoral vein, an 10-Vietnamese sheath was placed under ultrasound guidance for use during the ablation procedure. And mapping catheter was intermittently placed in the high right atrium, right ventricle, left atrium and left ventricle. In
the left femoral vein, a 9-Fr long sheath was placed for use during intracardiac echo procedure.
Another 7Fr was placed for CS catheter placement.
The sheaths were upgraded as needed during the case. Intracardiac catheters were positioned using direct fluoroscopic guidance.� ICE catheter was placed in RA. The following catheters / sheaths were placed
Sheaths:
��������� Agilis sheath in right femoral vein upgraded from 10Fr in right femoral vein
��������� 9Fr in right femoral vein
��������� 7Fr in right femoral vein
Catheters:
��������� The Affera Sphere 9 catheter -bidirectional D/F� - at locations of HRA, RV, LA and LV.
��������� ICE catheter -AccuNav -� at locations of RA, SVC, and RV.
��������� Bard decapolar deflectable catheter in CS and RA
Heparin was initiated after the access was obtained.
Intracardiac ECHO:
An 8-Vietnamese AcuNav intracardiac ECHO (ICE) probe was advanced through the 9-Vietnamese sheath in the left femoral vein into the right atrium under fluoroscopic and ICE ultrasound image guidance and a baseline ECHO study was performed. The left atrial
size was dilated. There was trace tricuspid regurgitation. The aortic valve was grossly normal. There was normal left ventricular size and function. There is no pericardial effusion. The JULIET has baseline low velocities. The pulmonary had good flow
identified.
During the procedure, ICE was used for monitoring of complications, guidance of trans-septal puncture, monitor the catheter position and tracking ablation lesions. No change in the pericardial space noted throughout the procedure.
Trans-septal Puncture:
Heparin was initiated and infused to maintain appropriate ACT. A J-tipped guidewire was advanced through into the superior vena cava under fluoroscopic and ICE guidance. The Agilis sheath with BRK needle was advanced into the superior vena cava over
the guidewire. The apparatus was withdrawn until it was in contact with the fossa ovalis. The position was adjusted based on fluoroscopy and ultrasound images from ICE. Under fluoroscopic, hemodynamic and ICE ultrasound guidance, left atrium was
cannulated by advancing the needle. Once atrial septum was cannulated, the needle was pulled back and the guide wire was advanced through the needle into the left atrium. The guide wire was advanced into the left superior pulmonary vein. Both the
sheath and the dilator was advanced into the left atrium. The dilator with the needle was withdrawn. Blood was aspirated from the Agilis sheath and arterial blood confirmed. The sheath was flushed. Saline injection noted into the left atrium on ICE.
The waveform of the LA pressure was recorded. The mapping catheter was advanced in the Agilis sheath into the left pulmonary vein.
3D Electroanatomic Mapping:
Using the Sphere 9 Affera catheter advanced through Agilis sheath into the left atrium, an electroanatomic map (EAM) of the left atrium was created using ALKALINE WATERa� mapping system with Prism-1 software. The map was used for localization of catheter
position and tacking of ablation lesions. The EAM of the left atrium showed a total of 3 PVs with a large common left and the two right sided pulmonary veins with all electrically connected to the body the LA. It showed no significant scar on the
posterior wall of the LA. The LA was dilated in size.
Following the EAM, preparation were made for ablation.
Ablation:
Ablation # 1: Pulmonary vein Isolation:
Glycopyrrolate 0.2 mg was given prior to the placement of ablation.
Pulsed field ablation was performed using an open irrigation, bidirectional, contact sensing, dual energy ablation catheter (ALKALINE WATERa sphere -9) by completing the circumferential lesions around the left and right pulmonary veins achieving pulmonary
vein isolation.
Patient remained in atrial fibrillation.
Cardioversion:
Once the PV isolation was achieved, decision was made to proceed with cardioversion. A 200 J biphasic shock was applied on the skip posterior Zoll patches and sinus rhythm was achieved. No significant pause noted.
Confirmation of the PVI and bidirectional block:
Following achievement of entrance block at the pulmonary veins, pacing from the Sphere 9 affera catheter in each of the four veins at 20 milliamps for 4 milliseconds showed entrance and exit block.
The LA was mapped with The ALKALINE WATERa� mapping system with Prism-1 software in sinus rhythm confirming the line of block at the ablation lesions lines.
There was no significant scar noted in the posterior wall and posterior wall was not isolated.
�
EP study:
Sinus Node Function: The sinus node functions are within acceptable normal range.
Atrioventricular Florence Function: �Normal AV conduction noted with normal AV florence conduction time.
Procedure End
ICE study was done again that showed no epicardial accumulation. No complications noted.
Following the completion of the EP study, catheters were removed. Protamine 30 mg was given at the end of the procedure and ACT was checked repeatedly. The sheaths were removed and hemostasis achieved with Figure of 8 suture and manual compression
after acceptable ACT is achieved.
Left atrial Pressure:
Pre-Procedure: Mean LA pressure was 20mmHg
Post-Procedure: Mean LA pressure was 15mmHg
Estimated Blood loss:
<10 cc
Specimens Removed:
None.
Implants / Devices:
None
Urine output:
None
Packs / Drains/ Tubes:
None
Instrument / Sponge Count Correct:
Yes
Complications of the Procedure:
None
Condition of Patient at Time of Transfer:
Hemodynamically stable with no neurological or vascular compromise.
Summary:
��������� Successful atrial fibrillation ablation with circumferential bidirectional line of block at pulmonary vein antra (Pulmonary vein isolation)
Figures from the Procedure:
Figure 1: The electroanatomic mapping (EAM) of the left atrium with bipolar voltage (purple indicates normal electrical activity with red as no myocardial muscle electric activity indicating a line of block or scar.
--- NOTE | 2024-10-19 14:08 | W.PN.UPDATE ---
Update Note
Progress Note Update
Pt seen post PFA. Right groin site without ht/bleeding, non tender. OOB ambulating, urinating without difficulty. Moderate post procedure nausea and chest discomfort, relieved with zofran and toradol. Post EKG NSR 60s w/lateral TWI, as before with
no acute changes. Resume eliquis tonight and continue other meds as before. Followup at [facility] as scheduled. Home today if groin site/tele remain stable.
== END 2024-10-19 14:50 | disposition home or self-care (01) ==
LOC: CATH 06:00
PROVIDERS: ATTENDING PHYSICIAN Internal Medicine Cardiovascular Disease; FAMILY PHYSICIAN Nurse Practitioner Adult Health; OTHER PHYSICIAN Internal Medicine Cardiovascular Disease
DX: I48.19 Other persistent atrial fibrillation (principal); I10 Essential (primary) hypertension; Z79.899 Other long term (current) drug therapy; Z79.01 Long term (current) use of anticoagulants
CPT/HCPCS: C1769; C1894; C1730; C1766; C1892; C1759; C1733; 36415; 80053; 85025; 85347; 86850; 86900; 86901; 93005; 93656

== ENCOUNTER → 2024-11-08 09:58 | Day surgery (SDC) | payer BC, SELFPAY ==
[2024-11-08 10:56] VITALS: BMI 29.5
--- NOTE | 2024-11-08 11:57 | ITS.CL.CARDI ---
Pick Pulling Machine Tender - Cardioversion
Cardioversion
Procedure Report:
Date of Procedure: 11/08/2024.
Procedure: Cardioversion.
Indication: Symptomatic Paroxysmal atrial flutter
Performing Physician: Aniyah Navarrete MD
Technique: The patient was brought to the holding area. Signed informed consent was obtained. A time out was called and performed. The patient was sedated by a member of the anesthesia service. Anticoagulation status was reviewed and was
appropriate. R-2 pads were placed anteriorly and posteriorly. A 200 J synchronized biphasic shock restored normal sinus rhythm without significant bradycardia. There were no complications.
Conclusion: Uncomplicated cardioversion fromParoxysmal atrial flutter to sinus rhythm.
Recommendation: Routine post cardioversion care. Continue correction anticoagulation.
cc: Nupur
== END ==
LOC: CATH 09:58
PROVIDERS: ATTENDING PHYSICIAN Internal Medicine Cardiovascular Disease; FAMILY PHYSICIAN Nurse Practitioner Adult Health; OTHER PHYSICIAN Internal Medicine Cardiovascular Disease
DX: I48.19 Other persistent atrial fibrillation (principal); I10 Essential (primary) hypertension; I08.3 Combined rheumatic disorders of mitral, aortic and tricuspid valves; E78.00 Pure hypercholesterolemia, unspecified; Z79.01 Long term (current) use of anticoagulants
CPT/HCPCS: 92960; 93005

== ENCOUNTER → 2024-12-08 12:57 | Outpatient (REF) | payer BC, SELFPAY | LOC: HWRCS 12:57 | PROVIDERS: ATTENDING PHYSICIAN Internal Medicine Cardiovascular Disease; FAMILY PHYSICIAN Nurse Practitioner Adult Health | DX: I48.19 Other persistent atrial fibrillation (principal) | CPT/HCPCS: 93308 ==

== ENCOUNTER → 2025-02-24 14:03 | Outpatient (REF) | payer BC, SELFPAY | LOC: DHSLP 14:03 | PROVIDERS: ATTENDING PHYSICIAN Internal Medicine; FAMILY PHYSICIAN Nurse Practitioner Adult Health | DX: G47.19 Other hypersomnia (principal); G47.8 Other sleep disorders; R06.83 Snoring | CPT/HCPCS: 95800 ==